=== PATIENT | female | born 1995 | race African-American/Black ===

== ENCOUNTER 2021-12-25 15:49 | Emergency (ER) | payer BC, OTHER ==
--- OUTSIDE RECORDS SUMMARY | 2021-12-25 15:53 | XMS REPORT | Continuity of Care Document ---
:1995 Author Organization [facility] t Address [address] [place] [address] Care Team Providers Name Role Phone Pcp, Patient Does Not Have A Primary Care Physician [id number] VINH FLORES Attending Clinician Unavailable VINH FLORES Attending Clinician Unavailable Florinda Hernandez MD Attending Clinician FLORINDA HERNANDEZ Attending Clinician Unavailable Doctor Unassigned, [place] Attending Clinician Unavailable JAYASHREE Attending Clinician Unavailable Prabha Jensen MD Attending Clinician JAYASHREE Admitting Clinician Unavailable Payers Payer Name Policy Type Policy Number Effective Date Expiration Date S ource Problems Condition Condition Condition Status Onset Resolution Last Treating Co mments Source Name Details Category Date Date Treatment Clinician Date Supervisio Supervisio Disease Active U nivers n of other n of other 8-23 [place] of [place] , [place] antepartum antepartum Br anch Disease Active Uni vers screening screening 8-22 ity of for for 00:00: [place] malformati malformati 00 Me dical on using on using Branch ultrasonic ultrasonic s s Tetrahydro Tetrahydro Disease Active U nivers cannabinol cannabinol 6-27 it y of (THC) use (THC[place] disorder, disorder, 00 Medi domenic mild, mild, Branch abuse abuse Tobacco Tobacco Disease Active Univers abuse abuse 10-26 ity of 00:00: [address] Nausea/vom Nausea/vom Disease Active U nivers iting [place] 10[place]26 [place] [facility] Anxiety Anxiety Disease Active Univers and and 10-26 [place] [facility] Allergies, Adverse Reactions, Alerts Allergy Allergy Status Severity Reaction(s) Onset Inactive Treating Comm ents Source Name Type Date Date Clinician NO KNOWN Drug Active Univers ALLERGIE Class ity of S [facility] Social History Social Habit Start Date Stop Date Quantity Comments Source ASSERTION 2021-09-18 [facility] 00:00:00 [facility] Alcohol intake 2021-12-22 2021-12-22 Ex-drinker [facility] 00:00:00 00:00:00 (finding) [facility] Exposure to 2021-12-11 2021-12-21 Not sure [facility] SARS-CoV-2 00:00:00 14:52:00 [facility] (event) [place] Tobacco use and 2021-12-21 2021-12-21 Smokeless tobacco Un iversity of exposure 00:00:00 00:00:00 non-user [facility] Sex Ass[birth year] At [birth year] Universit y of 00:00:00 00:00:00 [facility] Smoking Status Start Date Stop Date Source Never smoked tobacco [facility] Medications Ordered Filled Start Stop Current Ordering Indication Dosage Frequency Signature Comments Components Source Medication Medication Date Date Medication? Clinician (SIG) Name Name Yes [id number] 1{packe Take 1 Univers vit 6-27 t} Packet by ity of 33-iron-fol 00:00: mouth [place] ic-dha 00 daily. Medical (SELECT-OB Branch + DHA) 29 mg iron-1 mg -250 mg combo pack Yes [id number] 1{packe Take 1 Univers vit 6-27 t} Packet by ity of 33-iron-fol 00:00: mouth [place] ic-dha 00 daily. Medical (SELECT-OB Branch + DHA) 29 mg iron-1 mg -250 mg combo pack Yes [id number] 1{packe Take 1 Univers vit 6-27 t} Packet by ity of 33-iron-fol 00:00: mouth [place] ic-dha 00 daily. Medical (SELECT-OB Branch + DHA) 29 mg iron-1 mg -250 mg combo pack Yes [id number] 1{packe Take 1 Univers vit 6-27 t} Packet by ity of 33-iron-fol 00:00: mouth [place] ic-dha 00 daily. Medical (SELECT-OB Branch + DHA) 29 mg iron-1 mg -250 mg combo pack Yes [id number] 1{packe Take 1 Univers vit 6-27 t} Packet by ity of 33-iron-fol 00:00: mouth [place] ic-dha 00 daily. Medical (SELECT-OB Branch + DHA) 29 mg iron-1 mg -250 mg combo pack pyridoxine, Yes [id number] 25mg Take 1 Univers VITAMIN 6-27 tablet by ity of B-6, 25 mg 00:00: [place] tablet 00 (three) Medical times Branch daily. doxylamine Yes [id number] 25mg Take 1 U nivers 25 mg 6-27 tablet by ity of tablet 00:00: mouth at [place] 00 bedtime. Medical Branch metoclopram Yes [id number] 5mg Take 1 Univers danielle HCl 6-27 tablet by ity of (REGLAN) 5 00:00: mouth [place] mg tablet 00 every 6 Medical (six) Branch hours as needed for Nausea and Vomiting (N/V). Yes [id number] 1{packe Take 1 Univers vit 6-27 t} Packet by ity of 33-iron-fol 00:00: mouth [place] ic-dha 00 daily. Medical (SELECT-OB Branch + DHA) 29 mg iron-1 mg -250 mg combo pack pyridoxine, Yes [id number] 25mg Take 1 Univers VITAMIN 6-27 tablet by ity of B-6, 25 mg 00:00: mouth [place] tablet 00 (three) Medical times Branch daily. doxylamine Yes [id number] 25mg Take 1 U nivers 25 mg 6-27 tablet by ity of tablet 00:00: mouth at [place] 00 bedtime. Medical Branch metoclopram 2022-0 Yes [id number] 5mg Take 1 Univers danielle HCl 6-27 tablet by ity of (REGLAN) 5 00:00: mouth [place] mg tablet 00 every 6 Medical (six) Branch hours as needed for Nausea and Vomiting (N/V). Yes [id number] 1{packe Take 1 Univers vit 6-27 t} Packet by ity of 33-iron-fol 00:00: mouth [place] ic-dha 00 daily. Medical (SELECT-OB Branch + DHA) 29 mg iron-1 mg -250 mg combo pack pyridoxine, Yes [id number] 25mg Take 1 Univers VITAMIN 6-27 tablet by ity of B-6, 25 mg 00:00: mouth [place] tablet 00 (three) Medical times Branch daily. doxylamine Yes [id number] 25mg Take 1 U nivers 25 mg 6-27 tablet by ity of tablet 00:00: mouth at [place] 00 bedtime. Medical Branch metoclopram Yes [id number] 5mg Take 1 Univers danielle HCl 6-27 tablet by ity of (REGLAN) 5 00:00: mouth [place] mg tablet 00 every 6 Medical (six) Branch hours as needed for Nausea and Vomiting (N/V). pyridoxine, 2021- No [id number] 25mg Take 1 Univers VITAMIN 6-27 07-27 tablet by ity of B-6, 25 mg 00:00: 00:00 mouth 3 [place] tablet 00 :00 (three) Medical times Branch daily. doxylamine 2021- No [id number] 25mg Take 1 Univers 25 mg 6-27 07-27 tablet by ity of tablet 00:00: 00:00 mouth at [place] 00 :00 bedtime. Medical Branch metoclopram 2021- No [id number] 5mg Take 1 Univers danielle HCl 6-27 07-27 tablet by ity of (REGLAN) 5 00:00: 00:00 mouth [place] mg tablet 00 :00 every 6 Medical (six) Branch hours as needed for Nausea and Vomiting (N/V). Vital Signs Vital Name Observation Time Observation Value Comments Source Systolic blood 2021-12-21 20:07:00 109 mm[Hg] Univer sity of pressure [place] [facility] Diastolic blood 2021-12-21 20:07:00 73 mm[Hg] Unive rsity of pressure [facility] Heart rate 2021-12-21 20:07:00 84 /min Universi ty of [facility] Body temperature 2021-12-21 20:07:00 37.11 [facility] Respiratory rate 2021-12-21 20:07:00 16 /[facility] Body height 2021-12-21 20:07:00 157.5 cm Universi ty of [facility] Body weight 2021-12-21 20:07:00 78.926 kg Universi ty of [facility] BMI 2021-12-21 20:07:00 31.83 kg/m2 [facility] Oxygen saturation in 2021-12-21 20:07:00 98 /min [facility] Arterial blood by [facility] Pulse oximetry Branch Systolic blood 2021-11-23 19:16:00 113 mm[Hg] Univer sity of [facility] Diastolic blood 2021-11-23 19:16:00 74 mm[Hg] Unive rsity of [facility] Heart rate 2021-11-23 19:16:00 75 /min Universi ty [facility] Body temperature 2021-11-23 19:16:00 37.06 Sonya [facility] Body height 2021-11-23 19:16:00 165.1 cm Universi ty [facility] Body weight 2021-11-23 19:16:00 78.79 kg Universi [facility] BMI 2021-11-23 19:16:00 28.91 kg/m2 [facility] Procedures Procedure Date / Time Performing Clinician Source Performed URINE DRUG (IMMUNOASSAY) 2021-12-21 20:34:00 Vinh Flores [facility] DRUG Medical [facility] SCREEN POCT URINALYSIS W/O 2021-12-21 00:00:00 Vinh Flores [facility] ASSIGNMENT OF BENEFITS 2021-11-23 18:38:11 Doctor Unassigned, No [facility] POCT URINALYSIS W/O 2021-11-23 00:00:00 Fish, Florinda [facility] 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 [facility] ULTRASOUND 2021-10-26 05:01:00 Doctor Unassigned, No [facility] Encounters Start End Encounter Admission Attending Care Care Encounter Source Date/Time Date/Time Type Type Clinicians Facility Department ID 2022-01-18 2022-01-18 Outpatient R VINH FLORES [facility] B [id number] Univers 10:00:00 10:00:00 [id number] 2021-12-25 2021-12-25 Telephone CASSY Flores [id number] Univers 00:00:00 00:00:00 Vinh TRIPP [id number] it y of [id number] [facility] [id number] [address] 2021-12-21 2021-12-21 Outpatient R MARIA GVINH AGUILERA [facility] B [id number] Univers 15:00:00 15:29:35 ISHANNIKKI MORINLAXMI [facility] 2021-12-21 2021-12-21 Routine Ishanrehan [facility] [id number] Univers 15:00:00 15:29:35 Vinh TRIPP [id number] i ty of Visit [place] [id number] [id number] [address] 2021-12-21 2021-12-21 Outpatient R MARIA GSHERRIEYASHVINH MORIN [facility] B [id number] Univers 15:00:00 15:00:00 [id number] 2021-11-24 2021-11-24 Telephone Florinda Hernandez [id number] Univers 00:00:00 00:00:00 JOSEE [id number] it y [place] [id number] [address] 2021-11-23 2021-11-23 Routine Florinda Hernandez [place] [id number] Univers 13:45:00 14:48:30 JOSEE [id number] i ty of Visit WOMEN[facility] 4.2.7.2.686 [id number] [facility] [address] Branch 2021-11-23 2021-11-23 Outpatient Brandie FLORINDA HERNANDEZ [facility] [id number] Univers 13:45:00 14:48:30 ity [facility] 2021-11-23 2021-11-23 Orders Doctor GORDO [id number] Univers 00:00:00 00:00:00 Only Unassigned, BRYON [id number] ity of [place] [facility] 4.2.7.2.686 [place] [id number] [address] 2021-11-11 2021-11-11 Outpatient DICLEMENTE_ [facility] [address] 02:06:00 02:06:00 [facility] 2021-11-05 2021-11-05 Outpatient Brandie FLORINDA HERNANDEZ [facility] [id number] Univers 10:45:00 11:33:53 ity [facility] 2021-11-05 2021-11-05 GORDO [id number] Univers 00:00:00 00:00:00 Management Prabha BRYON [id number] ity of HOSPITAL [id number] [place] [id number] [facility] [address] [place] 2021-11-04 2021-11-04 Outpatient Brandie FLORINDA HERNANDEZ [facility] [id number] Univers 14:00:00 14:36:03 ity [facility] 2021-10-26 2021-10-26 Orders Doctor GORDO [id number] Univers 00:00:00 00:00:00 Only Unassigned, BRYON [id number] ity of [place] [facility] 4.2.7.2.686 [place] [id number] [address] Results Test Description Test Time Test Comments Results Result Comments Source POCT URINALYSIS W/O SPECIFIC GRAVITY 2021-12-21 20:14:00 Test Item Value Reference Range Interpretation Comme nts POCT PH U (test code = 3254) n/a 5-8 POCT U LEUK EST (test code = 3263) n/a Negative - Negative POCT U NIT (test code = 3262) n/a Negative - Negative POCT U PROT (test code = 3259) trace Negative - Negative POCT U GLU (test code = 3256) Negative Negative - Negative POCT U KETONE (test code = 3258) n/a Negative - Negative POCT U BLD (test code = 3257) n/a Negative - Negative [facility] SPECIFIC [id number] 19:25:00 Test Item Value Reference Range Interpretation Comments POCT PH U (test code = 3254) n/a 5-8 POCT U LEUK EST (test code = n/a Negative - Negative 3263) POCT U NIT (test code = 3262) n/a Negative - Negative POCT U PROT (test code = 3259) negative Negative - Negative POCT U GLU (test code = 3256) normal Negative - Negative POCT U KETONE (test code = 3258) n/a Negative - Negative POCT U BLD (test code = 3257) n/a Negative - Negative [facility]
[2021-12-25 16:26] LABS: Urine Blood Negative (Negative); Urine Glucose Negative (Negative); Urine Protein Negative (Negative); Urine Specific Gravity 1.025 (1.005-1.030); Urine pH 6.5 (5.0-7.0)
[2021-12-25 16:38] LABS: Urine Specific Gravity/Preg 1.025 (1.005-1.030)
--- NOTE | 2021-12-25 18:37 | RAD REPORT ---
EXAM DESCRIPTION: US - OB Limited - 12/25/2021 5:57 pm CLINICAL HISTORY: ABD CRAMPING, COMPARISON: No relevant comparison FINDINGS: Cervical canal is long and closed 6 cm in length. Single variably positioning fetus is identified. No gross anatomic abnormality seen. Femur length of 2.06 cm corresponds to 16 week 1 day age. Calculated SANTINO would be 06/10/2022. Heart rate is 140 BPM. Amniotic fluid volume is normal. No uterine wall abnormality seen. body and limb movements are seen. No adnexal abnormality seen. IMPRESSION: Single 16 week 1 day IUP with normal heart rate. Body and limb movements were observed. Cervical canal is closed. Amniotic fluid volume is normal. No suspicious findings are identified.
--- NOTE | 2021-12-25 18:47 | ER ---
Nurse's Notes [facility] Name: Aury Olson Age: 26 yrs Sex: Female : 1995 Arrival Date: 12/25/2021 Time: 15:53 Bed 5 Private MD: Diagnosis: Abnormal uterine and vaginal bleeding, unspecified Presentation: 12/25 16:04 Chief complaint: Patient states: is 15 weeks , is having abd pain and bleeding iw when she wipes, symptoms started yesterday , was sent by Dr. Carter to have US. Coronavirus screen: At this time, the client does not indicate any symptoms associated with coronavirus-19. Ebola Screen: Patient negative for fever greater than or equal to 101.5 degrees Fahrenheit, and additional compatible Ebola Virus Disease symptoms Patient denies exposure to infectious person. Patient denies travel to an Ebola-affected area in the 21 days before illness onset. No symptoms or risks identified at this time. Initial Sepsis Screen: Does the patient meet any 2 criteria? No. Patient's initial sepsis screen is negative. Does the patient have a suspected source of infection? No. Patient's initial sepsis screen is negative. Risk Assessment: Do you want to hurt yourself or someone else? Patient reports no desire to harm self or others. Onset of symptoms was December 24, 2021. 16:04 Method Of Arrival: Ambulatory iw 16:04 Acuity: DERRELL 3 iw Triage Assessment: 16:41 General: Appears in no apparent distress. comfortable, Behavior is calm, cooperative, eh3 appropriate for age. Pain: Denies pain. Neuro: Level of Consciousness is awake, alert, obeys commands, Oriented to person, place, time, situation. Cardiovascular: Capillary refill < 3 seconds Patient's skin is warm and dry. Respiratory: Airway is patent Respiratory effort is even, unlabored. GI: No signs and/or symptoms were reported involving the gastrointestinal system. : Reports vaginal bleeding that is bright red, spotty. Derm: No signs and/or symptoms reported regarding the dermatologic system. Musculoskeletal: No signs and/or symptoms reported regarding the musculoskeletal system. 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 - Social history:: Smoking status: Patient denies any tobacco usage or history of. Screenin:29 Abuse screen: Denies threats or abuse. Denies injuries from another. Nutritional eh3 screening: No deficits noted. Tuberculosis screening: No symptoms or risk factors identified. Fall Risk None identified. Assessment: 16:29 Reassessment: Pt refused IV and blood work; states "I've been poked 30 times just eh3 trying to get my blood, if I absolutely have to I will, but I don't want to right now.". 16:56 Reassessment: No changes from previously documented assessment. 3 Vital Signs: 16:04 BP 109 / 68; Pulse 83; Resp 16; Temp 98.1; Pulse Ox 100% on R/A; Weight 78.93 kg; iw Height 5 ft. 2 in. (157.48 cm); 17:00 BP 116 / 71; Pulse 80; Resp 19; Pulse Ox 100% on R/A; eh3 18:00 BP 111 / 80; Pulse 73; Resp 23; Pulse Ox 100% on R/A; eh3 18:30 BP 123 / 67; Pulse 72; Resp 11; Pulse Ox 100% on R/A; eh3 16:04 Body Mass Index 31.82 (78.93 kg, 157.48 cm) ED Course: 15:53 Patient arrived in ED. as 16:05 Triage completed. iw 16:06 Arm band placed on. iw 16:09 Buddy Evans is PHCP. jl9 16:09 Amilcar Faulkner MD is Attending Physician. jl9 16:28 Mirela Kirk, RN is Primary Nurse. eh3 16:29 Patient has correct armband on for positive identification. Bed in low position. Call [facility] light in reach. Side rails up X2. Client placed on continuous cardiac and pulse oximetry monitoring. NIBP monitoring applied. Door closed. Noise minimized. Lights dimmed. Warm blanket given. 17:01 Basic Metabolic Panel Sent. eh3 17:01 CBC with Diff Sent. eh3 17:01 Quantitative Hcg Sent. eh3 17:45 Awaiting radiology results. eh3 17:58 OB Limited US In Process Unspecified. EDMS 18:52 No provider procedures requiring assistance completed. Patient did not have IV access eh3 during this emergency room visit. Administered Medications: No medications were administered Medication: 18:52 VIS not applicable for this client. 3 Outcome: 18:46 Discharge ordered by MD. clark 18:52 Discharged to home ambulatory. eh3 18:52 Condition: stable 18:52 Discharge instructions given to patient, Instructed on discharge instructions, follow up and referral plans. Demonstrated understanding of instructions, follow-up care. 18:53 Patient left the ED. 3 Signatures: Dispatcher [employer] EDMS Misa Gallagher as Pattie Cintron, RN RN Mirela Kirk, RN RN 3 Buddy Evans Corrections: (The following items were deleted from the chart) 16:06 16:05 Home Meds: None; [facility] 16:06 16:05 PMHx: mitrral valve prolapse; [facility] 16:58 16:56 Patient has correct armband on for positive identification. Bed in low position. 3 Call light in reach. Side rails up X2. [facility] 16:58 16:56 Client placed on continuous cardiac and pulse oximetry monitoring. NIBP 3 monitoring applied. 3 16:58 16:56 Door closed. Noise minimized. Lights dimmed. Warm blanket given. 3 3 16:58 16:56 Abuse screen: Denies threats or abuse. Denies injuries from another. 3 3 16:58 16:56 Nutritional screening: No deficits noted. 3 3 16:58 16:56 Tuberculosis screening: No symptoms or risk factors identified. [facility] 16:58 16:56 Fall Risk None identified. [facility]
--- NOTE | 2021-12-25 18:47 | EDPHYS ---
Physician Documentation [facility] Name: Aury Olson Age: 26 yrs Sex: Female : 1995 Arrival Date: 12/25/2021 Time: 15:53 Bed 5 Private MD: ED Physician Amilcar Faulkner HPI: 12/25 16:34 This 26 yrs old Black Female presents to ER via Ambulatory with complaints of vaginal jl9 spotting. . 16:34 The patient presents with vaginal bleeding that is light, spotting. Onset: The jl9 symptoms/episode began/occurred yesterday. Modifying factors: The symptoms are alleviated by nothing, the symptoms are aggravated by nothing. Associated signs and symptoms: The patient has no apparent associated signs or symptoms. 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 - Social history:: Smoking status: Patient denies any tobacco usage or history of. ROS: 16:35 Constitutional: Negative for fever, chills, and weight loss, Eyes: Negative for injury, jl9 pain, redness, and discharge, ENT: Negative for injury, pain, and discharge, Neck: Negative for injury, pain, and swelling, Cardiovascular: Negative for chest pain, palpitations, and edema, Respiratory: Negative for shortness of breath, cough, wheezing, and pleuritic chest pain, Abdomen/GI: Negative for abdominal pain, nausea, vomiting, diarrhea, and constipation, Back: Negative for injury and pain. 16:35 MS/Extremity: Negative for injury and deformity, Skin: Negative for injury, rash, and discoloration, Neuro: Negative for headache, weakness, numbness, tingling, and seizure, Psych: Negative for depression, anxiety, suicide ideation, homicidal ideation, and hallucinations, Allergy/Immunology: Negative for hives, rash, and allergies, Endocrine: Negative for neck swelling, polydipsia, polyuria, polyphagia, and marked weight changes, Hematologic/Lymphatic: Negative for swollen nodes, abnormal bleeding, and unusual bruising. 16:35 : Positive for vaginal bleeding, spotting. . Exam: 16:36 Constitutional: This is a well developed, well nourished patient who is awake, alert, jl9 and in no acute distress. Head/Face: Normocephalic, atraumatic. Eyes: Pupils equal round and reactive to light, extra-ocular motions intact. Lids and lashes normal. Conjunctiva and sclera are non-icteric and not injected. Cornea within normal limits. Periorbital areas with no swelling, redness, or edema. ENT: Mucous membranes moist. Neck: Trachea midline, no thyromegaly or masses palpated, and no cervical lymphadenopathy. Supple, full range of motion without nuchal rigidity, or vertebral point tenderness. No Meningismus. Chest/axilla: Normal chest wall appearance and motion. Nontender with no deformity. No lesions are appreciated. Cardiovascular: Regular rate and rhythm with a normal S1 and S2. No gallops, murmurs, or rubs. Normal PMI, no JVD. No pulse deficits. Respiratory: Lungs have equal breath sounds bilaterally, clear to auscultation and percussion. No rales, rhonchi or wheezes noted. No increased work of breathing, no retractions or nasal flaring. Abdomen/GI: Soft, non-tender, with normal bowel sounds. No distension or tympany. No guarding or rebound. No evidence of tenderness throughout. Back: No spinal tenderness. No costovertebral tenderness. Full range of motion. Skin: Warm, dry with normal turgor. Normal color with no rashes, no lesions, and no evidence of cellulitis. MS/ Extremity: Pulses equal, no cyanosis. Neurovascular intact. Full, normal range of motion. Neuro: Awake and alert, GCS 15, oriented to person, place, time, and situation. Cranial nerves II-XII grossly intact. Motor strength 5/5 in all extremities. Sensory grossly intact. Cerebellar exam normal. Normal gait. Psych: Awake, alert, with orientation to person, place and time. Behavior, mood, and affect are within normal limits. Vital Signs: 16:04 BP 109 / 68; Pulse 83; Resp 16; Temp 98.1; Pulse Ox 100% on R/A; Weight 78.93 kg; iw Height 5 ft. 2 in. (157.48 cm); 17:00 BP 116 / 71; Pulse 80; Resp 19; Pulse Ox 100% on R/A; eh3 18:00 BP 111 / 80; Pulse 73; Resp 23; Pulse Ox 100% on R/A; eh3 18:30 BP 123 / 67; Pulse 72; Resp 11; Pulse Ox 100% on R/A; eh3 16:04 Body Mass Index 31.82 (78.93 kg, 157.48 cm) iw MDM: 16:09 Patient medically screened. jl9 16:36 Data reviewed: vital signs, nurses notes. jl9 18:45 Counseling: I had a detailed discussion with the patient and/or guardian regarding: the jl9 historical points, exam findings, and any diagnostic results supporting the discharge/admit diagnosis, radiology results, the need for outpatient follow up, to return to the emergency department if symptoms worsen or persist or if there are any questions or concerns that arise at home. 12/25 16:15 Order name: OB Limited US; Complete Time: 18:39 [facility] 12/25 16:27 Order name: Urine Dipstick-Ancillary; Complete Time: 16:41 [facility] 12/25 16:29 Order name: Urine --Ancillary (enter results); Complete Time: 16:41 3 12/25 16:15 Order name: NPO; Complete Time: 16:20 9 12/25 16:15 Order name: Urine Dipstick-Ancillary (obtain specimen); Complete Time: 16:35 jl9 Administered Medications: No medications were administered Disposition Summary: 12/25/21 18:46 Discharge Ordered Location: Home jl9 Condition: Stable jl9 Diagnosis - Abnormal uterine and vaginal bleeding, unspecified jl9 Followup: jl9 - With: Private Physician - When: 1 - 2 days - Reason: Recheck today's complaints, Continuance of care, Re-evaluation by your physician Discharge Instructions: - Discharge Summary Sheet jl9 - Vaginal Bleeding During , Second Trimester, [id number] jl9 Forms: - Medication Reconciliation Form jl9 - Thank You Letter jl9 - Antibiotic Education jl9 - Work release form iw - Prescription Opioid Use jl9 Signatures: Dispatcher [employer] Pattie Fisher RN RN iw Linares, John jl9 Corrections: (The following items were deleted from the chart) 16:06 16:05 Home Meds: None; [facility] 16:05 PMHx: mitrral valve prolapse; [facility] 16:15 IV Saline Lock ordered. jl9 ld1 16:15 Labs collected and sent ordered. jl9 ld1
[2021-12-25 20:06] VITALS: TEMP 98.1; O2SAT 100
[2021-12-25 20:27] VITALS: BP 123/67
== END 2021-12-25 18:53 | disposition home or self-care (01) ==
LOC: ER 15:49
DX: O20.9 Hemorrhage in early pregnancy, unspecified (principal); Z3A.15 15 weeks gestation of pregnancy
CPT/HCPCS: 76815; 81003; 81025; 99283